=== PATIENT | male | born 2000 | race Caucasian/White ===

== ENCOUNTER 2024-10-14 18:02 | Emergency (ER) | payer OTHER, SELFPAY ==
[2024-10-14 18:29] VITALS: BP 116/88; PULSE 111; RESP 18; TEMP 37.3; O2SAT 99; BMI 39.9
--- NOTE | 2024-10-14 18:31 | ED_ITS ---
HPI - Nausea/Vomiting/Diarrhea General Chief complaint: Nausea/Vomiting/Diarrhea Stated complaint: stomach ache/vomiting Time Seen by Provider: 10/14/24 22:31 Source: patient Mode of arrival: ambulatory Limitations: no limitations History of Present Illness ED Provider: pawan bonds guidance services coordinator HPI Narrative: patient is a 24-year-old male who presents emergency department for evaluation. He reports last night he began with generalized abdominal pain / cramping, single episode of diarrhea, nausea and a single episode of vomiting earlier today, chills, Nonproductive cough, body aches, and a mild headache. Endorses sick contacts in his home reporting siblings and parents have been ill with strep throat recently. She denies sore throat. He denies hematemesis, hematochezia, melena, symptoms. T Related Data Previous Rx's ?Medication ?Instructions ?Recorded amoxicillin 500 mg capsule 500 mg PO BID #19 caps 10/14/24 Allergies Allergy/AdvReac Type Severity Reaction Status Date / Time No Known Allergies Allergy Verified 10/14/24 18:34 Review of Systems 2 Review of Systems: Yes all other systems are reviewed and are negative PMFSH Past Medical History Attestation statement: The following information was validated with the patient. Source: old records reviewed Social History Social History Smoked in Last 30 Days: No Use of substances other than those prescribed or required for medical reasons: No Advance Directives: No Advance Directives Information Provided: No Do you have a plan to hurt others: No Plan Physical Exam 2 Vital Signs: Vital Signs: Last Vital Signs Temp 99.1 F 10/14/24 23:54 Pulse 108 H 10/14/24 23:54 Resp 20 10/14/24 23:54 BP 103/66 10/14/24 23:54 Pulse Ox 97 10/14/24 23:54 O2 Del Method Room Air 10/14/24 23:54 BMI result Body Mass Index 39.9 Appearance: Alert.?Oriented to person, place and time. No acute distress.?Normal affect. Eyes: Pupils equal, round and reactive to light.? ENT: Pharynx Is erythematous with 2+ tonsillar hypertrophy bilaterally. No exudates. Uvula is midline. No trismus. No drooling. Neck: Normal inspection.? Neck supple.?? No cervical adenopathy CVS: Heart sounds normal. Normal heart rate and rhythm.? Pulses normal.?? Respiratory: No respiratory distress.? Lung sounds clear to auscultation bilaterally?? Abdomen: Soft and non-tender. Normoactive bowel sounds. ? Skin: Skin warm and dry.? Normal skin color.? .?? Extremities: No lower extremity edema.? Neuro: Moves all extremities spontaneously. Sensation intact bilaterally. Ambulates with normal steady gait. Course Course Course Narrative: This is an RME: Additional HPI, ROS, PE not included below will be deferred to primary provider. RME assessment and note performed by: Hailey Gonzalez PA-C This is a [id number]-male who presents to the ER with complaints of abdominal pain, nausea, vomiting, or diarrhea. No fevers or chills. Endorsing headaches. No etoh use. Plan: Viral swabs, labs, further ER eval needed Medications Administered Discontinued Medications Generic Name Dose Route Start Last Admin Trade Name Freq PRN Reason Stop Dose Admin Amoxicillin 500 mg 10/14/24 23:32 10/14/24 23:47 Amoxicillin 500 Mg Capsule PO 10/14/24 23:33 500 mg ONCE ONE Administration Medical Decision Making Medical Decision Making [facility] Narrative: patient is a 24 old male who presents emergency department for evaluation of multiple complaints as per HPI. He overall appears well, he is afebrile, has a mild tachycardia endorsing that this is typically where his heart rate is. On evaluation he was pharyngitis, no signs of RPA/ M[employer]. Group a strep test is positive today. COVID-19/influenza/RSV testing is negative. Head serum labs obtained prior to my assumption of care, CBC is without leukocytosis anemia or thrombocytopenia. No electrolyte derangement. No EUFEMIA. LFTs overall unremarkable. Abdominal examination is benign. He denies symptoms, would defer urinalysis as I suspect UTI in an otherwise young healthy male is unlikely the etiology for his symptoms today. We reviewed potential for viral gastrointestinal illness in addition as he stated that the symptoms started suddenly after eating leftovers earlier this morning, and reviewed conservative treatment for such. All questions answered. Stable for discharge Differential Diagnosis Differential Diagnoses: The differential diagnosis associated with the presentation includes ( see narrative above) Admission/Observation Consideration of admission/observation: Escalation of care including admission/observation considered Lab Data [facility] Lab Attestation statement: I reviewed the patient's lab results. ( see narrative above) 10/14/24 19:57 10/14/24 19:57 Labs: Lab Results 10/14/24 10/14/24 Range/Units 19:57 22:37 WBC 7.7 (4.8-10.8) X10*3/uL RBC 5.49 (4.60-5.80) X10*6/uL Hgb 15.2 (14.0-18.0) g/dl Hct 44.1 (42.0-52.0) % MCV 80.3 (80.0-98.0) fL MCH 27.7 (27.0-33.0) pg MCHC 34.5 (31.0-36.0) g/dl RDW 13.0 (11.0-16.0) % Plt Count 191 (160-400) X10*3/uL MPV 10.6 (9.4-12.4) fL Immature Gran % (Auto) 0.3 (0.0-0.4) % Neut % (Auto) 87.6 H (45-73) % Lymph % (Auto) 6.7 L (20-40) % [place] % (Auto) 4.3 (2-11) % Eos % (Auto) 0.8 (0-4) % Baso % (Auto) 0.3 (0-2) % Lymph # (Auto) 0.5 L (1.2-4.9) X10*3/uL [place] # (Auto) 0.3 (0.1-1.2) X10*3/uL Eos # (Auto) 0.1 (0.0-0.4) X10*3/uL Baso # (Auto) 0.0 (0.0-0.2) X10*3/uL Abs Immat Gran (auto) 0.02 (0.00-0.03) X10*3/uL Absolute Neuts (auto) 6.8 (2.0-8.3) x10*3/uL Absolute Nucleated RBC 0.000 (0.0-0.012) X10*3/uL Nucleated RBC % (auto) 0.0 (0.0-0.2) /100WBC Sodium 141 (135-145) mmol/L Potassium 3.9 (3.3-5.1) mmol/L Chloride 105 (96-108) mmol/L Carbon Dioxide 26 (22-29) mmol/L Anion Gap 14 (12-20) BUN 15 (9-16) mg/dL Creatinine 0.74 (0.5-1.4) mg/dL Estim Creat Clear Calc 211.3 Estimated GFR > 60 Random Glucose 103 (60-115) mg/dL Calcium 9.4 (8.4-10.2) mg/dL Magnesium 1.9 (1.6-2.6) mg/dL Total Bilirubin 1.0 (0.0-1.0) mg/dL Direct Bilirubin 0.3 (0.0-0.5) mg/dL AST 35 (5-37) U/L ALT 92 H (0-40) U/L Alkaline Phosphatase 57 (39-117) U/L Total Protein 8.0 (6.5-8.0) g/dL Albumin 4.6 (3.5-5.0) g/dL Influenza Type A (PCR) NEGATIVE (Negative) Influenza Type B (PCR) NEGATIVE (Negative) RSV RNA Qual (PCR) NEGATIVE (Negative) SARS-CoV-2 RNA (RT-PCR) NEGATIVE (Negative) S. pyogenes GrpA GISSEL Positive A (Negative) Independent Historian Clinical information obtained from an independent historian. History obtained from or confirmed by: Spouse External Record Review External record reviewed: Outpatient record Prescription Management I considered prescription management with: Antibiotic Discharge Plan Discharge Clinical Impression: Acute streptococcal pharyngitis, Vomiting and diarrhea Patient Disposition: Home, Self-Care Instructions: Strep Throat (ED), Acute Diarrhea (ED) Additional Instructions: as mentioned, those with strep throat infection can also experienced gastrointestinal symptoms. However, can not completely exclude a viral gastrointestinal illness or potential food-borne illness as a cause for your vomiting and diarrhea. Be sure to stay well hydrated. Introduce a bland diet including crackers, bananas, rice, soup, toast, and boiled vegetables. This may progress to plain baked or boiled chicken or turkey. Avoid dairy products or foods high in fat or grease. You were given initial dose of antibiotic in the emergency department today, sent prescription to pharmacy for the remainder of doses please pick this up so that you may begin taking it tomorrow. Follow-up with your primary care doctor. You may return with new or worsening symptoms or concerns. Prescriptions: New amoxicillin 500 mg capsule 500 mg PO BID Qty: 19 0RF Referrals: Physician,Unknown J [Primary Care Provider] - Interventions: ED Discharge Assessment Last Done: 10/14/24 23:54 Discharge Date/Time: 10/14/24 23:54 Print Language: Kazakh
[2024-10-14 20:06] LABS: Basophils Percent Auto 0.3 % (0-2); Eosinophils Absolute Auto 0.1 X10*3/uL (0.0-0.4); Eosinophils Percent Auto 0.8 % (0-4); Hematocrit 44.1 % (42.0-52.0); Hemoglobin 15.2 g/dl (14.0-18.0); Imm Gran Abs Auto 0.02 X10*3/uL (0.00-0.03); Imm Gran Pct Auto 0.3 % (0.0-0.4); Lymphocytes Absolute Auto 0.5 X10*3/uL (1.2-4.9); Lymphocytes Percent Auto 6.7 % (20-40); MANUAL DIFF FLAG NO; Mean Corpuscular HGB Conc 34.5 g/dl (31.0-36.0); Mean Corpuscular Hemoglobin 27.7 pg (27.0-33.0); Mean Corpuscular Volume 80.3 fL (80.0-98.0); Mean Platelet Volume 10.6 fL (9.4-12.4); Monocytes Absolute Auto 0.3 X10*3/uL (0.1-1.2); Monocytes Percent Auto 4.3 % (2-11); Neutrophils Absolute Auto 6.8 x10*3/uL (2.0-8.3); Neutrophils Percent Auto 87.6 % (45-73); Platelet Count 191 X10*3/uL (160-400); Red Blood Count 5.49 X10*6/uL (4.60-5.80); White Blood Count 7.7 X10*3/uL (4.8-10.8)
[2024-10-14 20:20] LABS: Alanine Aminotransferase 92 U/L (0-40); Albumin Level 4.6 g/dL (3.5-5.0); Alkaline Phosphatase 57 U/L (39-117); Anion Gap 14 (12-20); Aspartate Amino Transferase 35 U/L (5-37); Bilirubin Direct 0.3 mg/dL (0.0-0.5); Blood Urea Nitrogen 15 mg/dL (9-16); Calcium 9.4 mg/dL (8.4-10.2); Carbon Dioxide 26 mmol/L (22-29); Chloride 105 mmol/L (96-108); Creatinine Clr Calc Pharmacy 211.3; Estimated Glomerular Filt Rate > 60; Glucose Random 103 mg/dL (60-115); Magnesium 1.9 mg/dL (1.6-2.6); Potassium 3.9 mmol/L (3.3-5.1); Sodium 141 mmol/L (135-145)
[2024-10-14 22:30] VITALS: BP 103/66; PULSE 108; RESP 20; TEMP 37.3; O2SAT 97
[2024-10-14 22:49] LABS: IDNOW Serial# 6674DD1D; Strep A Nucleic Acid Positive (Negative)
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
[2024-10-14 23:20] LABS: Influenza A PCR NEGATIVE (Negative); Influenza B PCR NEGATIVE (Negative); Resp Syncy Virus RNA Qual PCR NEGATIVE (Negative); SARS COV2 PCR INHOUSE NEGATIVE (Negative)
[2024-10-14] MEDS: Amoxicillin 500 MG CAPSULE PO (23:47)
--- NOTE | 2024-10-14 23:50 | PC.NURSE ---
medicated per mar, reviewed discharge instruction with pt, pt verbalized understanding, no sign of distress.
[2024-10-14 23:54] VITALS: BP 103/66; PULSE 108; RESP 20; TEMP 37.3; O2SAT 97
== END 2024-10-14 23:54 | disposition home or self-care (01) ==
PROVIDERS: Nurse Practitioner Family; Physician Assistant Medical; Emergency Provider Emergency Medicine
DX: J02.0 Streptococcal pharyngitis (principal); R11.2 Nausea with vomiting, unspecified; R19.7 Diarrhea, unspecified; R05.9 Cough, unspecified; Z03.818 Encounter for observation for suspected exposure to other biological agents ruled out
CPT/HCPCS: 0241U; 36415; 80048; 80076; 83735; 85025; 87651; 99283; 99284